=== PATIENT | male | born 1950 | race Caucasian/White ===

== ENCOUNTER 2018-03-16 07:16 | Inpatient (IN) | payer MEDICARE ==
[~2018-03-16] VITALS: Ht 180.3 cm; Wt 81.8 kg
[2018-03-16] VITALS (18 sets, daily range): BP systolic 112–163; BP diastolic 67–120
[2018-03-16] MEDS ORDERED: ondansetron/PF 4mg/2ml inj IV ONE (07:40)
[2018-03-16] MEDS ORDERED: morphine 4 MG/ML inj SYRINge IV ONE (07:40)
[2018-03-16] MEDS ORDERED: normal saline 1000ML IV soln IVB ONE (07:40)
[2018-03-16] MEDS ORDERED: NO HOME MEDS (08:09)
[2018-03-16 08:35] LABS: BASOPHILS % (AUTO) 0.6 % (0-1); EOSINOPHILS % (AUTO) 0.2 % (0-6); HEMATOCRIT 53.2 % (42.0-52.0); HEMOGLOBIN 17.9 g/dl (14.0-17.9); LYMPHOCYTES # (AUTO) 0.9 X10'3 (1.1-4.8); LYMPHOCYTES % (AUTO) 11.8 % (21-51); MEAN CORPUSCULAR HEMOGLOBIN 30.7 PG (27.0-31.0); MEAN CORPUSCULAR HGB CONC 33.7 % (33.0-36.5); MEAN CORPUSCULAR VOLUME 91.3 FL (78-98); MEAN PLATELET VOLUME 7.9 FL (7.4-10.4); MONOCYTES # (AUTO) 0.4 X10'3 (0-0.9); NEUTROPHILS # (AUTO) 6.4 X10'3 (1.8-7.7); NEUTROPHILS % (AUTO) 82.4 % (42-75); PLATELET COUNT 249 X10'3 (140-440); RED BLOOD COUNT 5.83 X10'6 (4.70-6.10); RED CELL DISTRIBUTION WIDTH 13.1 % (11.5-14.5); WHITE BLOOD COUNT 7.8 X10'3 (4.5-11.0)
[2018-03-16 08:37] LABS: CLARITY,URINE CLEAR (Clear); COLOR,URINE YELLOW (Yellow); GLUCOSE, URINE NEGATIVE (Neg); KETONES,URINE NEGATIVE (Neg); LEUKOCYTE ESTERASE ,URINE NEGATIVE (Neg); NITRITES, URINE NEGATIVE (Neg); OCCULT BLOOD,URINE NEGATIVE (Neg); PROTEIN,URINE NEGATIVE (Neg); UROBILINOGEN,URINE 0.2 E.U/dL (0.2-1.0)
[2018-03-16 08:40] LABS: UA COLLECTION TYPE CLN CATCH MIDSTREAM
[2018-03-16 08:47] LABS: ALANINE AMINOTRANSFERASE 60 U/L (12-78); ALBUMIN 4.3 G/DL (3.4-5.0); ALBUMIN/GLOBULIN RATIO 1.2 (1.1-1.5); ALKALINE PHOSPHATASE 80 IU/L (46-116); ANION GAP 7 (8-16); ASPARTATE AMINO TRANSFERASE 38 U/L (10-37); BLOOD UREA NITROGEN 14 MG/DL (7-18); BUN/CREATININE RATIO 10.3 (5.4-32.0); CALCIUM 9.6 MG/DL (8.5-10.1); CHLORIDE 103 MMOL/L (99-107); CREATININE 1.36 MG/DL (0.60-1.10); GLUCOSE 107 MG/DL (70-104); POTASSIUM 3.6 MMOL/L (3.5-5.1); SODIUM 138 MMOL/L (135-145); TOTAL CARBON DIOXIDE 28.1 MMOL/L (24-32); eGFR 52 ML/MIN
[2018-03-16] MEDS ORDERED: piperacillin/tazo 3.375gm/50ml 50 ML IV ONE (09:25)
[2018-03-16] MEDS ORDERED: ceFAZolin 1000mg inj ONE (09:48)
[2018-03-16] MEDS ORDERED: BUPIVAcaine/PF 2.5mg/ml (0.25%) 10ml vial ONE (09:48)
[2018-03-16] MEDS ORDERED: sevoflurane 250ml liquid IH ONE (09:54)
[2018-03-16] MEDS ORDERED: midazolam 2 mg/2 ml injection ONE (10:02)
[2018-03-16] MEDS ORDERED: morphine 10mg/ml inj. ONE ×2 (10:02)
[2018-03-16] MEDS ORDERED: glycopyrrolate 0.2mg/ml inj ONE (10:03)
[2018-03-16] MEDS ORDERED: neostigmine methylsulfate 1 MG/ML 10ml vial ONE (10:03)
[2018-03-16] MEDS ORDERED: rocuronium 10mg/ml inj IV ONE (10:03)
[2018-03-16] MEDS ORDERED: dexamethasone sod phosphate 4mg/ml inj. ONE (10:03)
[2018-03-16] MEDS ORDERED: ondansetron/PF 4mg/2ml inj ONE (10:03)
[2018-03-16] MEDS ORDERED: LIDOcaine 1%/PF 5ML 10 MG/ML VIAL ONE (10:03)
[2018-03-16] MEDS ORDERED: propofol inj 20 ML IV ONE (10:03)
[2018-03-16] MEDS ORDERED: ringers solution, lacted 1,000 ML IV SCH (10:26)
[2018-03-16] MEDS ORDERED: fentaNYL/PF 50MCG/1 ML 2ML syringe IV PRN ×2 (10:30)
[2018-03-16] MEDS ORDERED: ondansetron/PF 4mg/2ml inj IV PRN ×2 (10:30→11:45)
[2018-03-16] MEDS ORDERED: labetalol 20mg/4ml (5mg/ml) syringe IV PRN (10:30)
[2018-03-16] MEDS ORDERED: hydrALAZINE 20mg/ml inj. IV PRN (10:30)
[2018-03-16] MEDS ORDERED: meperidine/PF 25mg/ml syringe IV PRN ×2 (10:30)
[2018-03-16] MEDS ORDERED: magnesium hydroxide 30ml (MOM) UD suspension PO PRN (11:45)
[2018-03-16] MEDS ORDERED: acetaminophen 325mg tablet PO PRN (11:45)
[2018-03-16] MEDS ORDERED: mag hydrox/Alum hydrox/simeth 30ml oral suspension PO PRN (11:45)
[2018-03-16] MEDS: morphine 4 MG/ML inj SYRINge IV PRN ×3 (13:44→22:54)
[2018-03-16] MEDS: normal saline 1000ml 1,000 ML IV SCH ×2 (21:20→22:42)
[2018-03-16] MEDS ORDERED: zolpidem 5mg tablet PO SCH (22:11)
[2018-03-17] VITALS: BP 119/77
[2018-03-17 04:00] VITALS: BP 121/69
[2018-03-17] MEDS: normal saline 1000ml 1,000 ML IV SCH ×3 (05:03→23:19)
[2018-03-17 05:17] LABS: BASOPHILS % (AUTO) 0.2 % (0-1); EOSINOPHILS # (AUTO) 0.1 X10'3 (0-0.9); EOSINOPHILS % (AUTO) 1.2 % (0-6); HEMATOCRIT 43.3 % (42.0-52.0); HEMOGLOBIN 14.7 g/dl (14.0-17.9); LYMPHOCYTES % (AUTO) 9.8 % (21-51); MEAN CORPUSCULAR HEMOGLOBIN 30.9 PG (27.0-31.0); MEAN CORPUSCULAR VOLUME 90.8 FL (78-98); MEAN PLATELET VOLUME 8.5 FL (7.4-10.4); MONOCYTES # (AUTO) 0.9 X10'3 (0-0.9); MONOCYTES % (AUTO) 8.6 % (2-12); NEUTROPHILS # (AUTO) 8.5 X10'3 (1.8-7.7); NEUTROPHILS % (AUTO) 80.2 % (42-75); PLATELET COUNT 223 X10'3 (140-440); RED BLOOD COUNT 4.77 X10'6 (4.70-6.10); RED CELL DISTRIBUTION WIDTH 13.1 % (11.5-14.5); WHITE BLOOD COUNT 10.7 X10'3 (4.5-11.0)
[2018-03-17 05:36] LABS: ALBUMIN 2.9 G/DL (3.4-5.0); ANION GAP 8 (8-16); BLOOD UREA NITROGEN 14 MG/DL (7-18); BUN/CREATININE RATIO 12.5 (5.4-32.0); CALCIUM 8.4 MG/DL (8.5-10.1); CHLORIDE 110 MMOL/L (99-107); CREATININE 1.12 MG/DL (0.60-1.10); GLUCOSE 103 MG/DL (70-104); SODIUM 143 MMOL/L (135-145); TOTAL CARBON DIOXIDE 25.3 MMOL/L (24-32); eGFR 65 ML/MIN
[2018-03-17] MEDS: morphine 4 MG/ML inj SYRINge IV PRN (05:46)
[2018-03-17 07:35] VITALS: BP 131/87
[2018-03-17] MEDS: enoxaparin 40mg/0.4ml syringe SUBCUT SCH (07:48)
[2018-03-17] MEDS: HYDROcodone/acetaminophen 5mg/325mg tablet PO PRN ×4 (10:29→23:15)
[2018-03-17 11:57] VITALS: BP 133/90
[2018-03-17] MEDS ORDERED: CYCL10TA10 (17:13)
[2018-03-17] MEDS ORDERED: ZOLP5TAB8 (17:13)
[2018-03-17] MEDS ORDERED: CLON0.5T12 (17:13)
[2018-03-17 19:00] VITALS: BP 133/74
[2018-03-17] MEDS ORDERED: zolpidem 5mg tablet PO PRN (19:05)
[2018-03-17] MEDS ORDERED: clonazePAM 0.5mg tablet PO PRN (19:05)
[2018-03-18 00:04] VITALS: BP 138/83
[2018-03-18] MEDS: HYDROcodone/acetaminophen 5mg/325mg tablet PO PRN ×2 (04:09→09:39)
[2018-03-18 05:12] LABS: BASOPHILS % (AUTO) 0.4 % (0-1); EOSINOPHILS # (AUTO) 0.2 X10'3 (0-0.9); EOSINOPHILS % (AUTO) 2.6 % (0-6); HEMATOCRIT 42.7 % (42.0-52.0); HEMOGLOBIN 14.4 g/dl (14.0-17.9); LYMPHOCYTES # (AUTO) 1.7 X10'3 (1.1-4.8); LYMPHOCYTES % (AUTO) 19.2 % (21-51); MEAN CORPUSCULAR HGB CONC 33.8 % (33.0-36.5); MEAN CORPUSCULAR VOLUME 91.8 FL (78-98); MEAN PLATELET VOLUME 8.3 FL (7.4-10.4); MONOCYTES # (AUTO) 0.8 X10'3 (0-0.9); MONOCYTES % (AUTO) 8.7 % (2-12); NEUTROPHILS # (AUTO) 6.2 X10'3 (1.8-7.7); NEUTROPHILS % (AUTO) 69.1 % (42-75); PLATELET COUNT 216 X10'3 (140-440); RED BLOOD COUNT 4.65 X10'6 (4.70-6.10); RED CELL DISTRIBUTION WIDTH 13.3 % (11.5-14.5)
[2018-03-18 05:29] LABS: ANION GAP 6 (8-16); BLOOD UREA NITROGEN 11 MG/DL (7-18); BUN/CREATININE RATIO 9.4 (5.4-32.0); CALCIUM 8.6 MG/DL (8.5-10.1); CHLORIDE 110 MMOL/L (99-107); CREATININE 1.17 MG/DL (0.60-1.10); GLUCOSE 88 MG/DL (70-104); POTASSIUM 3.7 MMOL/L (3.5-5.1); SODIUM 144 MMOL/L (135-145); eGFR 62 ML/MIN
[2018-03-18 07:10] VITALS: BP 129/86
[2018-03-18] MEDS: enoxaparin 40mg/0.4ml syringe SUBCUT SCH (08:00)
[2018-03-18] MEDS: normal saline 1000ml 1,000 ML IV SCH (09:39)
[2018-03-18] MEDS ORDERED: HYDR-569 PO (10:17)
[2018-03-18 11:38] VITALS: BP 139/81
== END 2018-03-18 12:46 | disposition home or self-care (01) | DRG 352 ==
LOC: ER 07:17 → PACU 10:05 → ER 11:43 → SUR 3N 11:44
PROVIDERS: ADMIT Family Medicine; ATTEND Family Medicine
PROC: 0YU64JZ Supplement Left Inguinal Region with Synthetic Substitute, Percutaneous Endoscopic Approach (ICD-10-PCS; principal; 2018-03-16 09:59)
DX: K40.31 Unilateral inguinal hernia, with obstruction, without gangrene, recurrent (principal); E86.0 Dehydration; R00.0 Tachycardia, unspecified
CPT/HCPCS: 36415; 74176; 80048; 80053; 81003; 83605; 85025; 87070; 93005; 96361; 96374; 96375; 99285; A4315; A6258; C1713; C1781; J0360; J0690; J1100; J1650; J2001; J2250; J2270; J2405; J2704; J2710; J3490; J7030; J7120

== ENCOUNTER 2018-06-02 09:10 | Outpatient (CLI) | payer MEDICARE, MEDICAID ==
[~2018-06-02] VITALS: Ht 180.3 cm; Wt 82.6 kg
[~2018-06-02 09:10] MED LIST: CLON0.5T12; CYCL10TA10; HYDR-4383 PO; ZOLP5TAB8
[2018-06-02] MEDS ORDERED: CLON-528 PO (10:26)
[2018-06-02] MEDS ORDERED: MELO7.5T12 PO (10:26)
[2018-06-02] MEDS ORDERED: CYCL-1 PO (10:26)
[2018-06-02 10:27] LABS: BASOPHILS # (AUTO) 0.1 X10'3 (0-0.2); BASOPHILS % (AUTO) 1.3 % (0-1); EOSINOPHILS # (AUTO) 0.1 X10'3 (0-0.9); EOSINOPHILS % (AUTO) 2.1 % (0-6); LYMPHOCYTES # (AUTO) 1.3 X10'3 (1.1-4.8); LYMPHOCYTES % (AUTO) 22.8 % (21-51); MEAN CORPUSCULAR HEMOGLOBIN 30.2 PG (27.0-31.0); MEAN CORPUSCULAR VOLUME 91.5 FL (78-98); MEAN PLATELET VOLUME 8.3 FL (7.4-10.4); MONOCYTES # (AUTO) 0.6 X10'3 (0-0.9); MONOCYTES % (AUTO) 10.5 % (2-12); NEUTROPHILS # (AUTO) 3.5 X10'3 (1.8-7.7); NEUTROPHILS % (AUTO) 63.3 % (42-75); PRE OP HEMATOCRIT 49.4 % (42.0-52.0); PRE OP HEMOGLOBIN 16.3 g/dL (14.0-17.9); PRE OP PLATELET COUNT 259 X10'3 (140-440)
[2018-06-02 10:38] LABS: ALBUMIN/GLOBULIN RATIO 1.1 (1.1-1.5); ALKALINE PHOSPHATASE 79 IU/L (46-116); BLOOD UREA NITROGEN 27 MG/DL (7-18); BUN/CREATININE RATIO 22.5 (5.4-32.0); CALCIUM 8.7 MG/DL (8.5-10.1); CHLORIDE 103 MMOL/L (99-107); PRE OP ALT 57 U/L (30-65); PRE OP ANION GAP 8 (8-16); PRE OP AST 27 U/L (10-37); PRE OP BILIRUB, TOTAL 0.8 MG/DL (0.0-1.0); PRE OP GLUCOSE 87 MG/DL (70-104); PRE OP POTASSIUM 4.1 MMOL/L (3.4-5.1); PRE OP SODIUM 140 MMOL/L (135-145); TOTAL CARBON DIOXIDE 29.3 MMOL/L (24-32); TOTAL PROTEIN 7.6 G/DL (6.4-8.2); eGFR 60 ML/MIN
[2018-06-15] MEDS ORDERED: ringers solution, lacted 1,000 ML IV SCH (05:00)
[2018-06-15] MEDS ORDERED: tranexamic acid inj. 830 MG in normal saline 100ml IV soln 91.7 ML IV ONE ×2 (05:30→09:30)
[2018-06-15] MEDS ORDERED: cefazolin/dext.iso 2gm/100 ML IV ONE (05:30)
[2018-06-15] MEDS ORDERED: VANCOMYCIN INJ 1000 MG in NORMAL SALINE 250ml IV.SOLN IV ONE (05:30)
[2018-06-15] MEDS ORDERED: famotidine 20mg tablet PO ONE (05:30)
== END 2018-06-02 23:59 | disposition home or self-care (01) ==
LOC: PRE-OP 09:10 → EDSTATUS 06-15 10:30
PROVIDERS: ATTEND Orthopaedic Surgery
DX: Z01.818 Encounter for other preprocedural examination (principal); S83.232A Complex tear of medial meniscus, current injury, left knee, initial encounter; M25.562 Pain in left knee; M17.12 Unilateral primary osteoarthritis, left knee; X58.XXXA Exposure to other specified factors, initial encounter; Y93.89 Activity, other specified; Y92.89 Other specified places as the place of occurrence of the external cause; Y99.8 Other external cause status
CPT/HCPCS: 36415; 80053; 85025; 87070

== ENCOUNTER 2020-03-19 09:35 | Emergency (ER) | payer MEDICARE, MEDICAID ==
[~2020-03-19] VITALS: Ht 177.8 cm; Wt 77.6 kg
[~2020-03-19 09:35] MED LIST changes: +CLON-528 PO; -CLON0.5T12; +CYCL-1 PO; -CYCL10TA10; -HYDR-4383 PO; +MELO7.5T12 PO; -ZOLP5TAB8
[2020-03-19 10:27] VITALS: BP 120/68
== END 2020-03-19 11:15 | disposition home or self-care (01) ==
LOC: ER 09:36
DX: T14.91XA Suicide attempt, initial encounter (principal); Z79.899 Other long term (current) drug therapy
CPT/HCPCS: 99281

== ENCOUNTER 2020-03-24 15:34 | Emergency (ER) | payer MEDICARE, MEDICAID ==
[~2020-03-24] VITALS: Ht 177.8 cm; Wt 77.3 kg
[2020-03-24 16:11] LABS: BASOPHILS # (AUTO) 0.1 X10'3 (0-0.2); BASOPHILS % (AUTO) 0.8 % (0-1); EOSINOPHILS # (AUTO) 0.1 X10'3 (0-0.9); HEMATOCRIT 39.9 % (42.0-52.0); HEMOGLOBIN 13.5 g/dl (14.0-17.9); LYMPHOCYTES # (AUTO) 1.9 X10'3 (1.1-4.8); LYMPHOCYTES % (AUTO) 27.8 % (21-51); MEAN CORPUSCULAR HEMOGLOBIN 30.2 PG (27.0-31.0); MEAN CORPUSCULAR HGB CONC 33.9 g/dL (33.0-36.5); MEAN CORPUSCULAR VOLUME 89.1 FL (78-98); MEAN PLATELET VOLUME 7.7 FL (7.4-10.4); MONOCYTES # (AUTO) 0.7 X10'3 (0-0.9); MONOCYTES % (AUTO) 9.6 % (2-12); NEUTROPHILS # (AUTO) 4.2 X10'3 (1.8-7.7); NEUTROPHILS % (AUTO) 59.8 % (42-75); PLATELET COUNT 260 X10'3 (140-440); RED BLOOD COUNT 4.48 X10'6 (4.70-6.10); RED CELL DISTRIBUTION WIDTH 14.1 % (11.5-14.5)
[2020-03-24 16:29] LABS: ALANINE AMINOTRANSFERASE 29 U/L (12-78); ALBUMIN 3.6 G/DL (3.4-5.0); ALBUMIN/GLOBULIN RATIO 1.1 (1.1-1.5); ALKALINE PHOSPHATASE 68 IU/L (46-116); ANION GAP 10 (8-16); ASPARTATE AMINO TRANSFERASE 17 U/L (10-37); BILIRUBIN,TOTAL 0.5 MG/DL (0.1-1.0); BLOOD UREA NITROGEN 27 MG/DL (7-18); BUN/CREATININE RATIO 28.7 (5.4-32.0); CALCIUM 8.9 MG/DL (8.5-10.1); CHLORIDE 105 MMOL/L (99-107); CREATININE 0.94 MG/DL (0.60-1.10); ETHANOL < 0.010 GM/DL (0.0-0.010); GLUCOSE 108 MG/DL (70-104); POTASSIUM 3.8 MMOL/L (3.5-5.1); SODIUM 142 MMOL/L (135-145); TOTAL CARBON DIOXIDE 26.7 MMOL/L (24-32); TOTAL PROTEIN 6.8 G/DL (6.4-8.2); eGFR 79 ML/MIN
[2020-03-24] MEDS ORDERED: FLO0.4C PO (16:39)
--- NOTE | 2020-03-24 17:10 | NUR ---
PATIENT'S MEDICATIONS TAKEN TO PHARMACY TO BE STORED DURING HOSPITAL STAY.
[2020-03-24] MEDS ORDERED: DOCU250C96 PO (18:28)
[2020-03-24] MEDS ORDERED: FLAX100032 PO (18:28)
[2020-03-24] MEDS ORDERED: ALBU18HF2 INH (18:28)
[2020-03-24] MEDS ORDERED: OMEG-79 PO (18:28)
[2020-03-24] MEDS ORDERED: MIRT45TA79 PO (18:28)
[2020-03-24] MEDS ORDERED: OXYC-658 PO (18:28)
[2020-03-24] MEDS ORDERED: AMLO5TAB4 PO (18:28)
[2020-03-24] MEDS ORDERED: SENN-263 PO (18:28)
[2020-03-24] MEDS ORDERED: FENO200C PO (18:28)
[2020-03-24] MEDS ORDERED: BRIM5DRO2 OP (18:28)
[2020-03-24] MEDS ORDERED: CARB-268 OP (18:28)
[2020-03-24 20:02] LABS: URINE AMPHETAMINE SCREEN NEGATIVE (Neg); URINE BARBITUATE SCREEN NEGATIVE (Neg); URINE BENZODIAZEPINES SCREEN NEGATIVE (Neg); URINE CANNABINOID SCREEN NEGATIVE (Neg); URINE COCAINE SCREEN NEGATIVE (Neg); URINE METHADONE SCREEN NEGATIVE (Neg); URINE OPIATE SCREEN NEGATIVE (Neg); URINE PHENCYCLIDINE SCREEN NEGATIVE (Neg)
--- NOTE | 2020-03-24 21:30 | NUR ---
assumed care of pt. pt resting in bed with no s/s of distress or pain. will continue to monitor. will assess pt when he wakes up so not to disturb his rest.
[2020-03-24] MEDS ORDERED: acetaminophen 325mg tablet PO ONE ×2 (22:40→23:05)
--- NOTE | 2020-03-25 02:24 | NUR ---
pt resting in bed. no s/s of distress or pain. will continue to monitor pt.
[2020-03-25] MEDS ORDERED: albuterol 2.5 MG/3 ML nebule NEB PRN (03:25)
--- NOTE | 2020-03-25 05:14 | NUR ---
pt continues to rest on back in bed. appears to be sleeping. no s/s of distress or pain. rr of 15. will continue to monitor.
[2020-03-25] MEDS ORDERED: LORazepam 1 MG tablet PO ONE (06:15)
--- NOTE | 2020-03-25 06:37 | NUR ---
pt awake, laying in bed. pt states he is anxious, medication given as ordered. will cont to monitor
[2020-03-25] MEDS: sennosides 8.6mg tablet PO SCH ×2 (08:00→20:12)
[2020-03-25] MEDS: docusate sod 250mg capsule PO SCH (08:00)
[2020-03-25] MEDS: brimonidine 0.2% 5 ML ophthalmic drops EACHEYE SCH ×2 (10:03→20:35)
[2020-03-25] MEDS: fenofibrate 145mg tablet PO SCH (10:04)
[2020-03-25] MEDS: tamsulosin 0.4mg capsule PO SCH (10:05)
[2020-03-25] MEDS: amLODIPine 5mg tablet PO SCH (10:07)
[2020-03-25] MEDS: timolol 0.5% ophthalmic solution 5ml bottle EACHEYE SCH ×2 (10:08→20:36)
--- NOTE | 2020-03-25 10:15 | NUR ---
eye drops in pharmacy box in med room
--- NOTE | 2020-03-25 11:42 | NUR ---
pt sleeping, no signs of distress noted at this time
[2020-03-25] MEDS: oxyCODONE IR 5mg (immed. release) tablet PO PRN (12:36)
--- NOTE | 2020-03-25 16:26 | NUR ---
pt standing by bedside, pt quiet and cooperative in room
[2020-03-25] MEDS: mirtazapine 15mg tablet PO SCH (20:12)
--- NOTE | 2020-03-26 06:30 | NUR ---
PT IS AWAKE AND SPEAKING WITH THE MD
--- NOTE | 2020-03-26 07:30 | NUR ---
ORTHO CONSULT PLACED
[2020-03-26] MEDS: sennosides 8.6mg tablet PO SCH ×2 (07:45→20:21)
[2020-03-26] MEDS: amLODIPine 5mg tablet PO SCH (07:46)
[2020-03-26] MEDS: tamsulosin 0.4mg capsule PO SCH (07:46)
[2020-03-26] MEDS: docusate sod 250mg capsule PO SCH (07:46)
[2020-03-26] MEDS: fenofibrate 145mg tablet PO SCH (07:46)
[2020-03-26] MEDS: brimonidine 0.2% 5 ML ophthalmic drops EACHEYE SCH ×2 (07:47→20:21)
[2020-03-26] MEDS: oxyCODONE IR 5mg (immed. release) tablet PO PRN ×3 (07:47→19:05)
[2020-03-26] MEDS: timolol 0.5% ophthalmic solution 5ml bottle EACHEYE SCH ×2 (07:47→20:21)
--- NOTE | 2020-03-26 08:00 | NUR ---
PT IS AWAKE
--- NOTE | 2020-03-26 09:00 | NUR ---
pt eating breakfast
--- NOTE | 2020-03-26 10:08 | NUR ---
wound care is here. the patient has two pin in his finger that need to be removed at some time. rn will follow up with a poss plan
--- NOTE | 2020-03-26 11:00 | NUR ---
PT IS RESTING. NO ISSUES AT THIS TIME
--- NOTE | 2020-03-26 12:00 | NUR ---
pt is resting
--- NOTE | 2020-03-26 13:00 | NUR ---
PT IS RESTING. NO ISSUES AT THIS TIME
--- NOTE | 2020-03-26 14:20 | NUR ---
paged social and political studies professor for poss transportion help to [facility]
--- NOTE | 2020-03-26 15:00 | NUR ---
PT IS RESTING
--- NOTE | 2020-03-26 16:00 | NUR ---
PT IS RESTING
--- NOTE | 2020-03-26 17:03 | NUR ---
PT IS RESTING
--- NOTE | 2020-03-26 18:40 | NUR ---
The patient is sitting on the side of his bed eating dinner.
--- NOTE | 2020-03-26 19:30 | NUR ---
Patient is relaxing on his bed waiting for medications, then sleep.
[2020-03-26] MEDS ORDERED: timolol 0.5% ophthalmic solution 5ml bottle EACHEYE SCH (20:00)
[2020-03-26] MEDS: mirtazapine 15mg tablet PO SCH (20:21)
--- NOTE | 2020-03-26 20:30 | NUR ---
Patient has been medicated, andn is lying on his bed waiting for sleep to come.
--- NOTE | 2020-03-27 00:37 | NUR ---
Patient sleeping on his right side. No discomfort observed.
--- NOTE | 2020-03-27 03:14 | NUR ---
The patient is sleeping supine. Respirations are even and unlabored. No s/s of distress.
[2020-03-27] MEDS ORDERED: acetaminophen 325mg tablet PO ONE (04:40)
[2020-03-27 05:59] VITALS: BP_DIAS 76
--- NOTE | 2020-03-27 06:03 | NUR ---
Patient awake after having vitals taken
--- NOTE | 2020-03-27 07:00 | NUR ---
pt is resting in his room
[2020-03-27 07:55] VITALS: BP_SYST 111
[2020-03-27] MEDS: sennosides 8.6mg tablet PO SCH (07:55)
[2020-03-27] MEDS: timolol 0.5% ophthalmic solution 5ml bottle EACHEYE SCH (07:55)
[2020-03-27] MEDS: amLODIPine 5mg tablet PO SCH (07:55)
[2020-03-27] MEDS: docusate sod 250mg capsule PO SCH (07:55)
[2020-03-27] MEDS: brimonidine 0.2% 5 ML ophthalmic drops EACHEYE SCH (07:55)
[2020-03-27] MEDS: tamsulosin 0.4mg capsule PO SCH (07:55)
--- NOTE | 2020-03-27 08:00 | NUR ---
pt is resting in his room. no issues
[2020-03-27] MEDS: fenofibrate 145mg tablet PO SCH (08:28)
--- NOTE | 2020-03-27 09:00 | NUR ---
pt is resting
--- NOTE | 2020-03-27 09:15 | NUR ---
SONDRA CLINICIAN, ARRANGING PLACEMENT AT [facility], [facility].
--- NOTE | 2020-03-27 10:10 | NUR ---
pt is resting in his room
[2020-03-27] MEDS: oxyCODONE IR 5mg (immed. release) tablet PO PRN (10:44)
--- NOTE | 2020-03-27 11:00 | NUR ---
pt is resting
--- NOTE | 2020-03-27 12:00 | NUR ---
pt is resting
--- NOTE | 2020-03-27 13:00 | NUR ---
pt is resting
--- NOTE | 2020-03-27 14:25 | NUR ---
pt is leaving to the [facility]
== END 2020-03-27 14:29 ==
LOC: ER 15:35
DX: F32.9 Major depressive disorder, single episode, unspecified (principal); F41.9 Anxiety disorder, unspecified; Z98.890 Other specified postprocedural states; Z79.899 Other long term (current) drug therapy
CPT/HCPCS: 36415; 80053; 80305; 80320; 85025; 99285

== ENCOUNTER 2020-05-09 10:23 | Emergency (ER) | payer MEDICARE, MEDICAID ==
[~2020-05-09] VITALS: Ht 177.8 cm; Wt 77.3 kg
[~2020-05-09 10:23] MED LIST changes: +ALBU18HF2 INH; +AMLO5TAB4 PO; +BRIM5DRO2 OP; +CARB-268 OP; -CLON-528 PO; -CYCL-1 PO; +DOCU250C96 PO; +FENO200C PO; +FLAX100032 PO; +FLO0.4C PO; -MELO7.5T12 PO; +MIRT45TA79 PO; +OMEG-79 PO; +OXYC-658 PO; +SENN-263 PO
[2020-05-09] MEDS ORDERED: normal saline 1000ml 1,000 ML IV ONE ×2 (11:05)
[2020-05-09] MEDS ORDERED: acetaminophen 325mg tablet PO ONE (11:15)
[2020-05-09 11:46] VITALS: BP 102/68
[2020-05-09 12:28] LABS: BASOPHILS # (AUTO) 0.1 X10'3 (0-0.2); BASOPHILS % (AUTO) 1.1 % (0-1); EOSINOPHILS # (AUTO) 0.1 X10'3 (0-0.9); EOSINOPHILS % (AUTO) 1.6 % (0-6); HEMATOCRIT 44.9 % (42.0-52.0); HEMOGLOBIN 14.9 g/dl (14.0-17.9); LYMPHOCYTES # (AUTO) 1.3 X10'3 (1.1-4.8); LYMPHOCYTES % (AUTO) 22.2 % (21-51); MEAN CORPUSCULAR HEMOGLOBIN 29.8 PG (27.0-31.0); MEAN CORPUSCULAR HGB CONC 33.3 g/dL (33.0-36.5); MEAN CORPUSCULAR VOLUME 89.5 FL (78-98); MEAN PLATELET VOLUME 7.7 FL (7.4-10.4); MONOCYTES # (AUTO) 0.6 X10'3 (0-0.9); MONOCYTES % (AUTO) 10.5 % (2-12); NEUTROPHILS # (AUTO) 3.7 X10'3 (1.8-7.7); NEUTROPHILS % (AUTO) 64.6 % (42-75); PLATELET COUNT 308 X10'3 (140-440); RED BLOOD COUNT 5.01 X10'6 (4.70-6.10); RED CELL DISTRIBUTION WIDTH 14.1 % (11.5-14.5); WHITE BLOOD COUNT 5.7 X10'3 (4.5-11.0)
[2020-05-09 12:47] LABS: ALANINE AMINOTRANSFERASE 40 U/L (12-78); ALBUMIN 3.7 G/DL (3.4-5.0); ALBUMIN/GLOBULIN RATIO 1.1 (1.1-1.5); ALKALINE PHOSPHATASE 55 IU/L (46-116); ANION GAP 5 (8-16); ASPARTATE AMINO TRANSFERASE 23 U/L (10-37); BILIRUBIN,TOTAL 0.5 MG/DL (0.1-1.0); BLOOD UREA NITROGEN 26 MG/DL (7-18); BUN/CREATININE RATIO 23.2 (5.4-32.0); CALCIUM 9.7 MG/DL (8.5-10.1); CHLORIDE 109 MMOL/L (99-107); CREATININE 1.12 MG/DL (0.60-1.10); GLUCOSE 106 MG/DL (70-104); LIPASE 158 U/L (73-393); POTASSIUM 3.8 MMOL/L (3.5-5.1); SODIUM 144 MMOL/L (135-145); TOTAL CARBON DIOXIDE 29.7 MMOL/L (24-32); TOTAL PROTEIN 7.2 G/DL (6.4-8.2); eGFR 65 ML/MIN
[2020-05-09] MEDS ORDERED: AMOX-422 PO (13:06)
== END 2020-05-09 13:30 | disposition home or self-care (01) ==
LOC: ER 10:24
DX: J02.9 Acute pharyngitis, unspecified (principal); E86.0 Dehydration; F41.9 Anxiety disorder, unspecified; F32.9 Major depressive disorder, single episode, unspecified; Z98.890 Other specified postprocedural states; Z79.899 Other long term (current) drug therapy
CPT/HCPCS: 36415; 80053; 83690; 85025; 87081; 87635; 87880; 93005; 96360; 99284; J7030